=== PATIENT | male | born 1985 | race Caucasian/White ===

== ENCOUNTER 2017-05-07 17:21 | Inpatient (IN) | payer OTHER ==
[~2017-05-07] VITALS: Ht 190.5 cm; Wt 117.0 kg
[2017-05-07 17:25] VITALS: BP_SYST 160
--- NOTE | 2017-05-07 17:49 | NUR ---
Placed in room 03. Placed on site monitor, blood pressure machine and pulse oximeter. To gown for exam. Side rails up.
--- NOTE | 2017-05-07 17:50 | NUR ---
Pt complains of having a "dull" pain to chest for about an hour and a half ago. Pt states he was hiking with his earlier today and felt "more out of breath than usual." Pt denies N/V, fever, or diarrhea. Noted redness to bilateral upper extremities; per , "redness is not normal." No shortness of breath noted. No other injuries/complaints per patient or noted. at bedside.
--- NOTE | 2017-05-07 17:53 | NUR ---
ER Dr. Mccullough at bedside examining patient.
[2017-05-07] MEDS ORDERED: NITROGLYCERIN 0.4 MG TAB.SUBL SL ONE (18:00)
[2017-05-07] MEDS ORDERED: ASPIRIN 325 MG TABLET PO ONE (18:00)
--- NOTE | 2017-05-07 18:14 | NUR ---
# 20 gauge angiocath placed to LAC. Use of asceptic technique. Opsite placed over site. Blood return noted. Blood for lab drawn from site. Flushed with 10 cc of normal saline. No evidence of infiltration noted. Patient tolerated well.
--- NOTE | 2017-05-07 18:20 | NUR ---
Radiology at patient bedside. Pt tolerated well.
[2017-05-07 18:29] LABS: BASOPHILS # (AUTO) 0.1 K/uL (0.0-0.2); BASOPHILS % (AUTO) 1.1 % (0.0-2.0); EOSINOPHILS # (AUTO) 0.1 K/uL (0.0-0.4); EOSINOPHILS % (AUTO) 1.4 % (0.0-4.0); HEMATOCRIT 46.9 % (36-54); HEMOGLOBIN 15.5 g/dL (14.0-18.0); LYMPHOCYTES % (AUTO) 20.3 % (20.5-51.5); MEAN CORPUSCULAR HEMOGLOBIN 31 pg (27-31); MEAN CORPUSCULAR HGB CONC 33 % (32-36); MEAN CORPUSCULAR VOLUME 94 fL (79.0-98.0); MONOCYTES # (AUTO) 0.5 K/uL (0.0-1.0); MONOCYTES % (AUTO) 10.4 % (1.7-9.3); NEUTROPHILS # (AUTO) 3.4 K/uL (1.8-7.7); NEUTROPHILS % (AUTO) 66.8 % (40.0-70.0); PLATELET COUNT (AUTO) 261 K/uL (130-430); RED BLOOD CELL COUNT(AUTO) 4.98 MIL/uL (4.2-6.2); RED CELL DISTRIBUTION WIDTH 12.2 % (9.0-15.0); WHITE BLOOD COUNT (AUTO) 5.1 K/uL (4.8-10.8)
[2017-05-07 18:42] LABS: CALCIUM 10.2 mg/dL (8.4-11.0); CREATININE 0.85 mg/dL (0.55-1.30); POTASSIUM 3.6 mmol/L (3.5-5.1)
[2017-05-07 18:48] LABS: ALBUMIN 4.5 g/dL (3.4-4.8)
[2017-05-07 19:02] LABS: PROTHROMBIN TIME 10.4 SECS (9.5-12.5)
--- NOTE | 2017-05-07 19:05 | NUR ---
Received report from Fely WALDEN. All care endorsed.
[2017-05-07] MEDS ORDERED: MULT PO (19:15)
[2017-05-07 19:16] LABS: CKMB RELATIVE INDEX 1.1 (0.0-2.9); CREATINE KINASE MB 9.5 ng/mL (0-3.6)
--- NOTE | 2017-05-07 19:30 | NUR ---
Per patient, code status is full code.
--- NOTE | 2017-05-07 21:35 | NUR ---
Patient will be admitted to care of Dr. Adams. Admitted to Telemetry unit. Will go to room 108C. Belongings list completed. Summary report printed. Report will be given at bedside.
--- NOTE | 2017-05-07 22:00 | NUR ---
Admission Note Received patient from ER with diagnosis of Chest Pain. Initial Plan of Care discussed-patient verbalized understanding. Family at bedside. Oriented to room, call light, pain management and safety.
[2017-05-07 22:01] VITALS: BP_SYST 161
--- NOTE | 2017-05-07 22:15 | NUR ---
PREFERRED PHARMACY [facility]
--- NOTE | 2017-05-07 22:28 | NUR ---
RICHARDSON BULL. PATIENT COMPLAINING OF CHEST "PAIN OR PRESSURE." PAGING DR BULL FOR ORDERS. SPOKE TO JERARDO. AWAITING FOR CALL BACK. Addendum: 05/07/17 at 2254 by Marisa Ziegler RN DR BULL PRESENT IN THE HOSPITAL MAKING ROUNDS. DR BULL ORDERED NITRO TO BE GIVEN, SEE EMAR FOR DETAILS. NITRO GIVEN TO THE PATIENT. WILL CONTINUE TO MONITOR.
[2017-05-07] MEDS ORDERED: MORPHINE 2 MG/ML INJ. SYRINGE IVP PRN (22:45)
[2017-05-07] MEDS ORDERED: ACETAMINOPHEN 325 MG TABLET PO PRN (22:45)
[2017-05-07] MEDS ORDERED: TEMAZEPAM 15 MG CAPSULE PO PRN (22:45)
[2017-05-07] MEDS ORDERED: ONDANSETRON HCL 4 MG/2 ML VIAL IVP PRN (22:45)
[2017-05-07] MEDS: NITROGLYCERIN 0.4 MG TAB.SUBL SL PRN ×2 (22:46→22:59)
[2017-05-07] MEDS: PANTOPRAZOLE SODIUM 40 MG/VIAL (PROTONIX) IVP SCH (22:59)
[2017-05-07] MEDS ORDERED: LORazepam 1 MG TABLET PO PRN (23:15)
[2017-05-08 00:49] VITALS: BP_SYST 144
--- NOTE | 2017-05-08 00:54 | NUR ---
PATIENT IS AWAKE AND ALERT, RESTING COMFORTABLY IN BED. NO SOB NOTED, NO S/S OF ACUTE DISTRESS NOTED, NO COMPLAINTS OF PAIN AT THIS TIME. BED IS LOCKED, IN THE LOWEST POSITION, WITH BILATERAL UPPER SIDE RAILS UP FOR SAFETY. PROVIDED MORE WATER FOR HYDRATION PER PATIENT REQUEST. CALL LIGHT WITHIN REACH, ENCOURAGED PATIENT TO CALL FOR ASSISTANCE IF NEEDED.
--- NOTE | 2017-05-08 02:29 | NUR ---
PATIENT IS AWAKE AND ALERT, RESTING COMFORTABLY IN BED. SPOUSE AT THE BEDSIDE. BANKING AND FINANCE INSTRUCTOR AT THE BEDSIDE TO DRAW BLOOD. NO SOB NOTED, NO S/S OF ACUTE DISTRESS, NO COMPLAINTS OF PAIN AT THIS TIME. BED IS LOCKED, IN THE LOWEST POSITION, BILATERAL UPPER SIDE RAILS UP FOR SAFETY. CALL LIGHT WITHIN REACH, ENCOURAGED PATIENT TO CALL FOR ASSISTANCE IF NEEDED.
--- NOTE | 2017-05-08 03:09 | NUR ---
Consult Called Reason for Consultation: CP Was consult called: Y Person who was notified: Wilda Consulting Physician: Sim Conrad Wire Machine Operator Phone Number: [phone] Ordering Physician: Dr. Adams
--- NOTE | 2017-05-08 04:40 | NUR ---
PATIENT IS ASLEEP, RESTING COMFORTABLY IN BED. BREATHING EVEN AND UNLABORED, VISIBLE RISE AND FALL OF THE CHEST SEEN. BED LOCKED, IN THE LOWEST POSITION, BILATERAL UPPER SIDE RAILS UP. AT THE BEDSIDE. CALL LIGHT WITHIN REACH.
[2017-05-08 06:00] VITALS: BP_SYST 156
[2017-05-08] MEDS: NITROGLYCERIN 0.4 MG TAB.SUBL SL PRN ×2 (06:22→06:36)
--- NOTE | 2017-05-08 06:37 | NUR ---
PATIENT IS REQUESTING FOR NITRO (SEE EMAR) FOR HIS CHEST DISCOMFORT. PATIENT GIVEN NITRO X2, SEE EMAR FOR DETAILS.
--- NOTE | 2017-05-08 06:43 | NUR ---
CLOSING NOTES PATIENT IS AWAKE AND ALERT, RESTING COMFORTABLY IN BED. NO SOB NOTED, NO S/S OF ACUTE DISTRESS, NO COMPLAINTS OF PAIN. IV SITE INTACT, DRESSING CLEAN AND DRY. BED LOCKED, IN THE LOWEST POSITION, 2X SIDERAILS UP FOR SAFETY. CALL LIGHT WITHIN REACH. SPOUSE AT THE BEDSIDE. FALL AND SAFETY PRECAUTIONS MAINTAINED. ALL NEEDS HAVE BEEN MET DURING THIS SHIFT. WILL ENDORSE CARE TO ONCOMING DAYSHIFT NURSE.
[2017-05-08 07:18] LABS: BASOPHILS % (AUTO) 0.7 % (0.0-2.0); EOSINOPHILS # (AUTO) 0.1 K/uL (0.0-0.4); EOSINOPHILS % (AUTO) 2.1 % (0.0-4.0); HEMATOCRIT 45.5 % (36-54); HEMOGLOBIN 15.2 g/dL (14.0-18.0); LYMPHOCYTES # (AUTO) 1.3 K/uL (1.0-5.5); LYMPHOCYTES % (AUTO) 25.7 % (20.5-51.5); MEAN CORPUSCULAR HEMOGLOBIN 32 pg (27-31); MEAN CORPUSCULAR HGB CONC 33 % (32-36); MEAN CORPUSCULAR VOLUME 95 fL (79.0-98.0); MONOCYTES # (AUTO) 0.6 K/uL (0.0-1.0); MONOCYTES % (AUTO) 12.2 % (1.7-9.3); NEUTROPHILS % (AUTO) 59.3 % (40.0-70.0); PLATELET COUNT (AUTO) 260 K/uL (130-430); RED CELL DISTRIBUTION WIDTH 12.2 % (9.0-15.0)
[2017-05-08 07:52] LABS: ALBUMIN 3.9 g/dL (3.4-4.8); CALCIUM 9.6 mg/dL (8.4-11.0); CREATININE 0.95 mg/dL (0.55-1.30); POTASSIUM 3.9 mmol/L (3.5-5.1); THYROID STIMULATING HORMONE 4.98 uIu/mL (0.34-4.82); TOTAL BILIRUBIN 1.4 mg/dL (0.0-1.0)
[2017-05-08 08:00] VITALS: BP_SYST 150
--- NOTE | 2017-05-08 08:05 | NUR ---
OPENING NOTE LATE ENTRY DUE TO PT CARE: REPORT IS RECEIVED FROM SENIOR DATA WAREHOUSE ARCHITECT NURSE AND CARE IS ENDORSED OVER TO MYSELF. PT IS RECEIVED AWAKE, ALERT, AND ORIENTED X4. NO SIGNS OR SYMPTOMS OF DISTRESS NOTED. PT COMPLAINS OF MINOR CHEST DISCOMFORT. PT IS AMBULATORY. IS AT BEDSIDE. DISCUSSED PLAN OF CARE FOR TODAY. IV IS LOCATED IN LEFT FA 20G, NO SIGNS OR SYMPTOMS OF ERYTHEMA OR INFILTRATION. IV FLUSHING WELL. BED IS AT LOWEST POSITION, CALL LIGHT WITHIN REACH, TWO SIDE RAILS UP. WILL CONTINUE TO MONITOR.
[2017-05-08] MEDS: PANTOPRAZOLE SODIUM 40 MG/VIAL (PROTONIX) IVP SCH (08:37)
--- NOTE | 2017-05-08 08:54 | NUR ---
PRN MORPHINE GIVEN PER PT REQUEST AND STATED PAIN OF 7 OUT OF 10. GAVE PRN MORPHINE. WILL REASSESS.
[2017-05-08] MEDS ORDERED: ASPIRIN 81 MG TABLET(ECOTRIN) PO SCH (09:00)
--- NOTE | 2017-05-08 10:00 | NUR ---
ROUNDS LATE ENTRY DUE TO PT CARE: PT IS AWAKE AND ALERT. PAIN MEDICATION WAS EFFECTIVE. NO SIGNS OR SYMPTOMS OF DISTRESS OR SOB NOTED. PT DENIES ANY PAIN. IS AT BEDSIDE. MORNING MEDICATIONS WERE GIVEN AND TOLERATED WELL. PT HAD ECHO AT BEDSIDE AND EJECTION FRACTION WAS AT 65%. SR. WATSON HAS ROUNDED ON PT THIS MORNING. BED IS AT LOWEST POSITION, CALL LIGHT WITHIN REACH. TWO SIDE RAILS UP. WILL CONTINUE TO MONITOR.
--- NOTE | 2017-05-08 12:25 | NUR ---
ROUNDS PT IS AWAKE AND ALERT EATING LUNCH. NO SIGNS OR SYMPTOMS OF DISTRESS OR SOB NOTED. PT DENIES ANY PAIN. CURRENT NEEDS ARE MET. BED IS AT LOWEST POSITION, CALL LIGHT WITHIN REACH, BED ALARM IS ON, TWO SIDE RAILS UP. WILL CONTINUE TO MONITOR.
[2017-05-08 12:44] VITALS: BP_SYST 163
[2017-05-08] MEDS ORDERED: FOLIC ACID 1 MG TABLET PO ONE (12:45)
[2017-05-08] MEDS ORDERED: THIAMINE HCL 100 MG TABLET PO ONE (12:45)
--- NOTE | 2017-05-08 14:19 | NUR ---
ROUNDS PT IS AWAKE AND ALERT. NO SIGNS OR SYMPTOMS OF DISTRESS OR SOB NOTED. GAVE ONE TIME MEDICATIONS AND PT TOLERATED THEM WELL. CURRENT NEEDS ARE MET. BED IS AT LOWEST POSITION, CALL LIGHT WITHIN REACH, TWO SIDE RAILS UP. WILL CONTINUE TO MONITOR.
[2017-05-08] MEDS ORDERED: LISINOPRIL 5 MG TABLET PO SCH (14:45)
[2017-05-08 14:50] VITALS: BP_SYST 155
[2017-05-08] MEDS ORDERED: LISI-652 PO (14:56)
[2017-05-08] MEDS ORDERED: THIA100T13 PO (14:57)
--- NOTE | 2017-05-08 15:45 | NUR ---
D/C Patient Patient given medication reconciliation form and D/C instructions. Exit Care provided. Patient verbalized understanding. MD discussed with patient the results and treatment provided. Ambulatory with steady gait for discharge to home. Patient in stable condition, ID band removed. IV catheter removed, intact and dressing applied, no active bleeding. Rx of LISINOPRIL AND THIAMIN given. Patient educated on pain management. All belongings sent with patient.
[2017-05-09] MEDS ORDERED: FOLIC ACID 1 MG TABLET PO SCH (09:00)
[2017-05-09] MEDS ORDERED: THIAMINE HCL 100 MG TABLET PO SCH (09:00)
== END 2017-05-08 15:55 | disposition home or self-care (01) | DRG 313 ==
LOC: SED 17:21 → STU 21:23
PROVIDERS: ADMIT Internal Medicine; ATTEND Internal Medicine
DX: R07.89 Other chest pain (principal); E66.9 Obesity, unspecified; F10.20 Alcohol dependence, uncomplicated; I10 Essential (primary) hypertension; Z79.899 Other long term (current) drug therapy; Z68.32 Body mass index [BMI] 32.0-32.9, adult
CPT/HCPCS: 36415; 71045; 80053; 80061; 82550-TC; 82553-TC; 83735-TC; 83880; 84443-TC; 84484; 85025; 85379; 85610-TC; 85730-TC; 93005; 93306; 99285; C9113; J2270